=== PATIENT | female | born 1950 | race Caucasian/White ===

== ENCOUNTER 2018-01-07 11:48 | Inpatient (IN) ==
[~2018-01-07 11:48] MED LIST: LIDOCAINE W/ SODIUM BICARB 0.5 ML SYR ONE; LIDOCAINE W/ SODIUM BICARB 0.5 ML SYR SUBD ONE; Lactated Ringers 1,000 ML PRIMARY IV ONE; Lactated Ringers 1,000 ML PRIMARY IV SCH; Sodium Chloride 0.9% 0 ML IV ONE; Sodium Chloride 0.9% 1,000 ML ONE; Sodium Chloride 0.9% 500 ML ONE; ceFAZolin Inj 2gm (Premix) 2 GM/50 ML BAG IV ONE
[2018-01-07] MEDS ORDERED: HEPARIN 10,000 UNIT/1 ML ONE (11:52)
[2018-01-07] MEDS ORDERED: Vancomycin Inj 1gm vial ONE ×2 (11:55→13:06)
[2018-01-07 12:11] LABS: BILIRUBIN,URINE NEGATIVE (NEG); CLARITY,URINE CLEAR (CLEAR); COLOR,URINE YELLOW; GLUCOSE, URINE (UA) NEGATIVE (NEG); OCCULT BLOOD,URINE NEGATIVE (NEG); PH,URINE 5.5 (5.0-8.5); PROTEIN,URINE 30 mg/dl (NEG); UROBILINOGEN,URINE 0.2 mg/dL (0.2)
[2018-01-07 12:18] LABS: SQUAMOUS EPITHELIAL CELL,UR FEW; URINE SAMPLE TYPE CLEAN CATCH URINE
[2018-01-07] MEDS ORDERED: ROPIVACAINE SPLASH ONE ×5 (12:30)
[2018-01-07] MEDS ORDERED: [UNRECOGNIZED DRUG - OTHER] SPLASH ONE ×5 (12:30)
[2018-01-07] MEDS ORDERED: SODIUM CHLORIDE SPLASH ONE ×5 (12:30)
[2018-01-07] MEDS ORDERED: fentaNYL Inj 250 MCG/5 ML VIAL ONE ×2 (12:38→13:53)
[2018-01-07] MEDS ORDERED: BUPIVACAINE 0.5% W/ EPI - 10 ML VIAL ONE (12:39)
[2018-01-07] MEDS ORDERED: MIDAZOLAM 5 MG/1 ML ONE ×2 (12:39→13:24)
[2018-01-07] MEDS ORDERED: LIDOCAINE W/ SODIUM BICARB 0.5 ML SYR ONE (12:39)
[2018-01-07] MEDS ORDERED: Sodium Chloride 0.9% vial 10 ML ONE ×2 (13:05→13:20)
[2018-01-07 13:06] LABS: BUN/CREATININE RATIO 25.83 (6-20)
[2018-01-07] MEDS ORDERED: MORPHINE SULFATE/PF 10 MG/10 ML AMPULE ONE (13:08)
[2018-01-07] MEDS ORDERED: TRANEXAMIC ACID 1,000 MG / 10 ML VIAL ONE (13:17)
[2018-01-07] MEDS ORDERED: KETAMINE 100 MG/1 ML - 5 ML ONE (13:49)
[2018-01-07] MEDS ORDERED: Lactated Ringers 1,000 ML PRIMARY IV ONE (15:14)
--- NOTE | 2018-01-07 15:41 | ORTHO.OP ---
- - -: See Dictated Operative Report
[2018-01-07] MEDS ORDERED: Acetaminophen 1000mg Inj 1,000 MG/100 ML VIAL IV ONE (16:05)
--- NOTE | 2018-01-07 16:12 | CRNA.PROCE ---
Nerve Block Documentation - - Safety Measures: Time Out Taken, Site Verified - - Type of Nerve Block Used: Left Adductor Canal Nerve Block Position for Nerve Block: Supine Moniters Used During Block: EKG, SPO2, NIBP Oxygen Supplemented: Yes Sedation Used - Enter Amount in Comment Field [ANES.SEDAT]: Midazolam (mg): Yes (2.5), Fentanyl (mcg): Yes (50) Skin Prep Used: ChloroPrep Draped: No Technique: Ultrasound Nerve Block Needle Used: EchoBright 100 mm Local Anesthetic - Enter Amt in Comment Field [ANES.LOCNB]: 0.5 % Bupivicaine with Epinephrine 1:200,000 (mL): Yes (30cc) - - PreOp Block : Time In: 12:45 PreOp Block : Time Out: 13:05 Anesthesia Time - Other Weight: 81.193 kg Height: 5 ft 2 in Body Mass Index (BMI): 32.7
--- NOTE | 2018-01-07 16:13 | CRNA.PROCE ---
Central Neuraxis Block Placetx - - Safety Measures: Time Out Taken, Site Verified - - Type of Block: Subarachnoid Reason for Block: Surgical Moniters Used During Block: EKG, SPO2, NIBP Sedation Used - Enter Amount Used in Comment Field: Midazolam (mg): Yes (1mg), Fentanyl (mcg): Yes (50) Positioning: Sitting Skin Prep Used: ChloroPrep Draped: Yes Skin Infiltration - Enter Amount Used in Comment Field: 1% Xylocaine with Bicarb (mL): Yes (1cc) Spinal Needle Used: 25 Moose 80 mm Local Anesthetic - Enter Amount Used in Comment Field: 0.75 % Bupivacaine with Dextrose (ml): Yes Additive Used - Enter Amount Used in Comment Field: Preservative Free Morphine ( mg): Yes (0.1mg) Bioclusive Dressing Applied: No Anesthesia Time - Block Time PreOp Block : Time In: 12:45 PreOp Block : Time Out: 13:05 - Other Weight: 81.193 kg Height: 5 ft 2 in Body Mass Index (BMI): 32.7
[2018-01-07] MEDS ORDERED: fentaNYL Inj 100 MCG/2 ML VIAL ONE (16:14)
--- NOTE | 2018-01-07 16:17 | CRNA.PROGR ---
Anesthesia Time - - Start date: 01/07/18 - Procedure/Recovery Time Anesthesia : Time In: 13:25 Anesthesia : Time Out: 15:53 - Block Time PreOp Block : Time In: 12:45 PreOp Block : Time Out: 13:05 - Other Weight: 81.193 kg Height: 5 ft 2 in Body Mass Index (BMI): 32.7 Physical Status: P2 Anesthesia Type: Spinal Block, MAC, Other (Pt had Adductor Canal block and SAB placed in preop holding, followed by MAC in the OR for her surgery. Adductor [id number] SAB [id number] in OR with MAC [id number])
--- NOTE | 2018-01-07 16:30 | DI ---
XR KNEE 1 OR 2 VWS,01/07/2018 3:29 PM: Clinical History: Postoperative left total knee arthroplasty. Previous Exam: None at this facility. Findings: AP and lateral views of the left knee are obtained, and demonstrate postsurgical changes consistent w ith left total knee arthroplasty. There is subcutaneous air noted within the surrounding soft tissues. There is no hardware loosening or fracture. Impression: Status post left total knee arthroplasty without fracture.
[2018-01-07] MEDS ORDERED: CALCIUM CARBONATE 500 MG (TUMS) CHEWABLE TABLET PO PRN (16:38)
[2018-01-07] MEDS ORDERED: LIDOCAINE HCL 2 % 10 ML JELLY URO-JECT TOPICAL PRN (16:38)
[2018-01-07] MEDS ORDERED: KETOROLAC 15 MG/1 ML VIAL IVP SCH (16:38)
[2018-01-07] MEDS ORDERED: Ondansetron ODT Tab 8 MG TAB PO PRN (16:38)
[2018-01-07] MEDS ORDERED: ONDANSETRON 4 MG/2 ML VIAL IVP PRN (16:38)
[2018-01-07] MEDS ORDERED: BISACODYL 10 MG SUPPOSITORY RECTAL PRN (16:38)
[2018-01-07] MEDS ORDERED: BISACODYL 5 MG TABLET PO PRN (16:38)
[2018-01-07] MEDS ORDERED: diphenhydrAMINE 25 MG CAPSULE PO PRN (16:38)
[2018-01-07] MEDS ORDERED: Prochlorperazine Tab 10 MG TAB PO PRN (16:38)
[2018-01-07] MEDS ORDERED: MAG HYDROX/AL HYDROX/SIMETH 30 ML SUSP PO PRN (16:38)
[2018-01-07] MEDS: ACETAMINOPHEN 325 MG TABLET PO SCH ×2 (17:09→20:27)
[2018-01-07] MEDS: traMADol 50 MG TABLET PO SCH ×2 (17:40→22:48)
--- NOTE | 2018-01-07 19:39 | CONSULT ---
Consult Note - Consult Reason for Consult: PostOp Consulation : Ortho Requesting Physician: aidan Primary Care Provider: ARNALDO WOODRUFF HPI - History of Present Illness History of Present Illness: Patient is doing well postop hospitalist service consult for hypertension according to the primary care physician and patient has a whitecoat hypertension she is on Altace and Norvasc denies any chest pain nausea or vomiting Past Medical History Medical History: Hypertension, diabetes, hypercholesterolemia Tobacco Use: Never Smoker In the Past 12 Months, Have Used or Abuse Any of the Following Substance: None Review of Systems - Review of Systems All Systems: Reviewed & No Additional Complaints Except as Stated - Respiratory Respiratory: DENIES: Negative System Review, Cough, Sputum, Dyspnea At Rest, Dyspnea with Exertion, Pleuritic Pain, Hemoptysis, Wheezing, Other, See HPI - Cardiovascular Cardiovascular: DENIES: Negative System Review, Chest Pain, Edema, Syncope, Palpitations, Orthopnea, Paroxysmal Nocturnal Dyspnea, Other, See HPI - Gastrointestinal Gastrointestinal / Abdominal: DENIES: Negative System Review, Nausea, Vomiting, Diarrhea, Constipation, Abdominal Pain, Bloody Stool, Poor Appetite, Heartburn, Regurgitation, Bloating, Lactose Intolerance, Melena, Bright Red Blood per Rectum, Other, See HPI Medication / Allergies Home Medications: Home Medications 3 Medication Instructions Recorded Confirmed Type Acebutolol HCl 400 mg PO BID 12/12/17 01/07/18 History Amlodipine Besylate 7 mg PO QHS 12/12/17 01/07/18 History Aspirin [Aspir 81] 81 mg 12/12/17 History Betamet Diprop/Prop Gly 1 drp TOPICAL PRN 12/12/17 History [Betamethasone Dp Aug 0.05% [facility]] Indapamide 2.5 mg PO DAILY 12/12/17 01/07/18 History Insulin Detemir Flexpen Inj 10 unit SUBCUT QHS 12/12/17 01/07/18 History [Levemir Flexpen Inj] Linagliptin [Tradjenta] 5 mg 12/12/17 History Metformin HCl 1,000 mg PO QAM 12/12/17 12/12/17 History Metformin HCl 1,500 mg PO QPM 12/12/17 01/07/18 History Pravastatin Sodium [Pravachol] 80 mg PO DAILY 12/12/17 01/07/18 History Ramipril 10 mg PO BID 12/12/17 01/07/18 History Allergies/Adverse Reactions: Allergies 3 Allergy/AdvReac Type Severity Reaction Status Date / Time latex Allergy Unknown HIVES Verified 01/07/18 12:17 prochlorperazine Allergy NOT Verified 01/07/18 12:17 [From Compazine] APPLICABLE Exam - Vitals Vital Signs: Vital Signs Temperature 97.5 F Temperature Source Oral Pulse Rate [Pulse Oximeter] 63 Pulse Rate 56 Respiratory Rate 18 Blood Pressure [Left Arm] 158/77 Blood Pressure 173/84 Pulse Ox 98 Oxygen Flow Rate 1 Oxygen Delivery Method Nasal Cannula Height 5 ft 2 in Weight 179 lb - General General Appearance: No Acute Distress, Cooperative - Head Head Exam: Normal Inspection, Normocephalic, Atraumatic - Eye Eye Exam: POSITIVE: Normal Appearance, PERRL, EOMI, No Scleral Icterus - Respiratory Respiratory Exam: POSITIVE: Clear to Auscultation - Bilaterally, Breathing Non Labored, Normal To Percussion, Normal to Percussion and Palpation - Cardiovascular Cardiovascular Exam: POSITIVE: RRR, No Murmur, No Clicks, No Gallops, No Rubs, PMI Non-Displaced - GI/Abdominal GI/Abdominal Exam: POSITIVE: Normal Bowel Sounds, Non Tender, Non Distended, Soft, No Masses, No Hepatomegaly, No Splenomegaly, No Organomegaly - Extremities Extremities Exam: POSITIVE: No Clubbing Present, No Edema Present - Neurological Neurological Exam: POSITIVE: Alert, Oriented x 3, No Facial Droop, Speech Intact / Clear Results - Labs CBC and BMP: 01/07/18 12:30 Assessment and Plan - Patient Problems (1) Hypertension Current Visit: Yes Status: Acute Comment: Continue current medication blood pressure controlled at present time pain controlled Code(s): I10 - Essential (primary) hypertension (2) Diabetes Current Visit: Yes Status: Acute Comment: Stable continue current meds Code(s): E11.9 - Type 2 diabetes mellitus without complications
[2018-01-07] MEDS: Lactated Ringers 1,000 ML PRIMARY IV SCH (20:28)
[2018-01-07] MEDS: DOCUSATE 100 MG CAPSULE PO SCH (20:28)
[2018-01-07] MEDS: ceFAZolin Inj 2gm (Premix) 2 GM/50 ML BAG IV SCH (20:32)
[2018-01-08] MEDS: Insulin Lispro Flexpen 300 UNIT/3 ML INSULN.PEN SUBCUT SCH ×5 (00:09→20:20)
[2018-01-08] MEDS: ACETAMINOPHEN 325 MG TABLET PO SCH ×6 (00:10→20:19)
[2018-01-08] MEDS: traMADol 50 MG TABLET PO SCH ×4 (03:58→23:22)
[2018-01-08] MEDS: ceFAZolin Inj 2gm (Premix) 2 GM/50 ML BAG IV SCH (04:50)
[2018-01-08 05:22] LABS: Hematocrit [HCT] 28.6 % (37.0-47.0); Hemoglobin [HGB] 9.3 g/dL (12.0-16.0); MEAN CORPUSCULAR HEMOGLOBIN 30.2 PG (27-31); MEAN CORPUSCULAR HGB CONC 32.5 g/dL (33-37); MEAN CORPUSCULAR VOLUME 92.9 FL (81-99); MEAN PLATELET VOLUME 9.3 FL (7.4-12.2); RED BLOOD COUNT 3.08 10^6/uL (4.20-5.40)
[2018-01-08 05:46] LABS: BUN/CREATININE RATIO 22.5 (6-20)
[2018-01-08] MEDS: CELECOXIB 200 MG CAPSULE PO SCH (08:18)
[2018-01-08] MEDS: ASPIRIN EC 81 MG TABLET PO SCH ×2 (08:18→20:19)
[2018-01-08] MEDS: DOCUSATE 100 MG CAPSULE PO SCH ×2 (08:19→20:18)
--- NOTE | 2018-01-08 08:30 | ORTHO.PROG ---
Last Taken Vital Signs: Vital Signs - Last Taken Temperature 97.5 F 01/08/18 06:30 Pulse Rate 69 01/08/18 06:30 Respiratory Rate 18 01/08/18 06:30 Blood Pressure 148/69 01/08/18 06:30 Pulse Ox 94 01/08/18 06:30 Laboratory Results 01/07/18 01/07/18 01/07/18 Range/Units 12:06 12:30 12:30 WBC (4.8-10.8) 10^3/uL RBC (4.20-5.40) 10^6/uL Hgb (12.0-16.0) g/dL Hct (37.0-47.0) % MCV (81-99) FL MCH (27-31) PG MCHC (33-37) g/dL RDW Std Deviation (39-50) fL RDW Coeff of Yolanda (11.5-14.5) % Plt Count (140-350) 10*3/uL MPV (7.4-12.2) FL PT 10.8 (9.7-11.4) secs INR 1.02 (0.00-5.90) N/A APTT 35.6 (22.6-36.2) SECS Sodium (135-145) meq/L Potassium (3.8-5.2) meq/L Chloride (98-112) meq/L Carbon Dioxide (23-33) meq/L Anion Gap (5-20) BUN (7-22) mg/dL Creatinine (0.50-1.20) mg/dL Estimated GFR (>60 ml/min/1.73m(2)) BUN/Creatinine Ratio (6-20) Glucose (78-110) mg/dL Calculated Osmolality (267-292) mOsm/kg Calcium (8.7-10.7) mg/dL Ur Collection Type Clean catch urine Urine Color Yellow Urine Clarity Clear (CLEAR) Urine pH 5.5 (5.0-8.5) Ur Specific [place] 1.015 (1.005-1.030) Urine Protein 30 (NEG) mg/dl Urine Glucose (UA) Negative (NEG) mg/dL Urine Ketones Negative (NEG) Urine Occult Blood Negative (NEG) Urine Nitrate Negative (NEG) Urine Bilirubin Negative (NEG) Urine Urobilinogen 0.2 (0.2) mg/dL Ur Leukocyte Esterase Negative (NEG) Urine RBC None (NONE) /hpf Urine WBC None (NONE) Ur Squamous Epith Cells Few (NONE) Ur Renal Epithelial Cell None (NONE) Urine Crystals None Urine Bacteria None (NONE) Urine Casts None Urine Mucus Few (NONE) Urine Trichomonas None (NONE) Urine Yeast None (NONE) Blood Type A POSITIVE Antibody Screen Negative 01/07/18 01/08/18 01/08/18 Range/Units 12:30 04:25 04:25 WBC 7.01 (4.8-10.8) 10^3/uL RBC 3.08 L (4.20-5.40) 10^6/uL Hgb 9.3 L (12.0-16.0) g/dL Hct 28.6 L (37.0-47.0) % MCV 92.9 (81-99) FL MCH 30.2 (27-31) PG MCHC 32.5 L (33-37) g/dL RDW Std Deviation 43.8 (39-50) fL RDW Coeff of Yolanda 13.3 (11.5-14.5) % Plt Count 263 (140-350) 10*3/uL MPV 9.3 (7.4-12.2) FL PT (9.7-11.4) secs INR (0.00-5.90) N/A APTT (22.6-36.2) SECS Sodium 139 136 (135-145) meq/L Potassium 3.8 3.8 (3.8-5.2) meq/L Chloride 103 100 (98-112) meq/L Carbon Dioxide 24 27 (23-33) meq/L Anion Gap 12 9 (5-20) BUN 31 H 27 H (7-22) mg/dL Creatinine 1.2 1.2 (0.50-1.20) mg/dL Estimated GFR 45 45 (>60 ml/min/1.73m(2)) BUN/Creatinine Ratio 25.83 H 22.50 H (6-20) Glucose 106 146 H (78-110) mg/dL Calculated Osmolality 294.0 H 289.0 (267-292) mOsm/kg Calcium 9.3 9.1 (8.7-10.7) mg/dL Ur Collection Type Urine Color Urine Clarity (CLEAR) Urine pH (5.0-8.5) Ur Specific [place] (1.005-1.030) Urine Protein (NEG) mg/dl Urine Glucose (UA) (NEG) mg/dL Urine Ketones (NEG) Urine Occult Blood (NEG) Urine Nitrate (NEG) Urine Bilirubin (NEG) Urine Urobilinogen (0.2) mg/dL Ur Leukocyte Esterase (NEG) Urine RBC (NONE) /hpf Urine WBC (NONE) Ur Squamous Epith Cells (NONE) Ur Renal Epithelial Cell (NONE) Urine Crystals Urine Bacteria (NONE) Urine Casts Urine Mucus (NONE) Urine Trichomonas (NONE) Urine Yeast (NONE) Blood Type Antibody Screen S: minimal pain, up to bathroom no Lightheadedness O: AxOx3 AVSS NVI wgood AROM ankle dressing dry A:POD#1 s/p L TKA - doing well P:Up with PT Monitor HTN Mild acute blod loss anemia on chronic anemia- tolerating this fine anticipate discharge tomorrow, possibly today
--- NOTE | 2018-01-08 08:40 | PDOC(PROG) ---
Date and Time of Service: 01/08/2018 8:44 AM Interval History: Subjective Pain seemed to be controlled. She rates her pain maybe 2 out of 10. She is denying other symptoms there's no chest pain, no shortness of breath. No nausea. Objective : Data - Labs CBC and BMP: 01/08/18 04:25 01/08/18 04:25 Objective : Exam - General General Appearance: No Acute Distress, Cooperative - Head Head Exam: Normal Inspection - Eye Eye Exam: Normal Appearance - ENT ENT Exam: Normal Exam - Neck Neck Exam: Normal Inspection - Respiratory Respiratory Exam: Clear to Auscultation - Bilaterally - Cardiovascular Cardiovascular Exam: RRR - GI/Abdominal GI/Abdominal Exam: Normal Bowel Sounds, Non Tender, Non Distended, Soft, No Organomegaly - Rectal Rectal Exam: Deferred - External Exam: Deferred Exam: Deferred - Extremities Additional Extremities Exam Details: Dressing applied to the right knee. No edema on the left. - Back Back Exam: Normal Inspection - Neurological Neurological Exam: Alert, Oriented x 3, CN II-XII Intact, No Facial Droop, Speech Intact / Clear, Moves All Extremities Equally - Psychiatric Psychiatric Exam: Normal Affect Assessment and Plan - Patient Problems (1) Status post left knee replacement Current Visit: Yes Status: Acute Comment: For DVT prophylaxis she is on aspirin. Continue PT and OT. Pain seemed to be controlled with current pain medications. Code(s): Z96.652 - Presence of left artificial knee joint (2) Hypertension Current Visit: Yes Status: Acute Comment: I think will restart her on her blood pressure medications. 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 We'll restart indapamide though tomorrow. Code(s): I10 - Essential (primary) hypertension (3) Diabetes Current Visit: Yes Status: Acute Comment: Will put her back on hr metformin and Levemir. Continue sliding scale. Code(s): E11.9 - Type 2 diabetes mellitus without complications (4) Hypercholesterolemia Current Visit: Yes Status: Acute Comment: Continue pravastatin Code(s): E78.00 - Pure hypercholesterolemia, unspecified
[2018-01-08] MEDS: Lactated Ringers 1,000 ML PRIMARY IV SCH ×3 (09:05→23:52)
[2018-01-08] MEDS: RAMIPRIL 10 MG CAPSULE PO SCH ×2 (09:55→20:19)
[2018-01-08] MEDS: metFORMIN 500 MG TABLET PO SCH (10:22)
--- NOTE | 2018-01-08 11:28 | PTI REPORT ---
Thank you for the referral of Niru Mercado. She was seen on 01/08/18 for an inpatient evaluation status post left total knee arthroplasty. SUBJECTIVE: The patient is a 67-year-old female who was referred by Dr. Matute secondary to a left total knee arthroplasty. The patient rates her pain as a 2/10 on the verbal analog scale (0=no pain, 10=worst pain) this morning. The patient states she lives with her in [place]. She has two stairs to navigate to get in and out of her home. She does have a past history of back surgery which has left her with a toe drop on the right lower extremity. She does have an AFO but does not have it with her while in the hospital. She does take several blood pressure medications and has not taken them since her surgery. PAST MEDICAL HISTORY: Past medical history can be found in the patient's medical record. OBJECTIVE FINDINGS: General observations: The patient is alert and oriented x3. Bed mobility: The patient was able to come from supine to sit with stand by assistance. Transfers: The patient was able to transfer from sit to stand with stand by assistance. Range of motion: The patient demonstrated range of motion from 0 to 85 degrees in that left knee. Ambulation: The patient was able to ambulate approximately 100 feet with walker and stand by assist of one. ASSESSMENT: The patient is doing extremely well at this time and has a good prognosis. Problem List: Increased pain in the left knee Decreased active range of motion in the left knee Decreased strength in the left knee Short-Term Goals: To be met by discharge from inpatient: Patient will be able to transfer from bed to stand independently. Patient will be able to ambulate 100 feet with walker, weight-bearing as tolerated. Patient will be able to ascend and descend five stairs with walker, weight- bearing as tolerated. Long-Term Goals: To be met following discharge from inpatient: Patient will be seen by outpatient physical therapy. TREATMENT PLAN: Patient will be seen B.I.D during the week and one time per day over the weekend as an inpatient for transfers, mobility, stairs, and independence with her ADLs. INITIAL TREATMENT: Treatment today consisted of the initial evaluation followed by the patient performing ambulation before being transferred back to her chair. The patient was in good spirits with minimal pain. SIL
[2018-01-08] MEDS: ACEBUTOLOL HCL 400 MG PO SCH ×2 (12:47→20:17)
[2018-01-08] MEDS: oxyCODONE IR Tab 5 MG TAB PO PRN ×2 (13:16→18:57)
--- NOTE | 2018-01-08 13:31 | CRNA.PROGR ---
Anesthesia Note - Progress Notes Anesthesia Progress Note: Cheerful lying in bed. Just receiving her 1st Oxycontin post surgery, block is wearing off. No nausea since last night. Rubio out and has been to bathroom. Vital Signs - Last Taken Temperature 97.1 F 01/08/18 11:05 Pulse Rate 61 01/08/18 11:05 Respiratory Rate 17 01/08/18 11:05 Blood Pressure 165/81 01/08/18 11:05 Pulse Ox 96 01/08/18 11:05 No apparent anesthetic difficulties.
--- NOTE | 2018-01-08 15:47 | PT.PROG ---
Progress Note Progress Note: S. Patient stated that she is hurting more this afternoon compared to this morning. O. Patient ambulated 120 feet in the espinoza then returned to her room where she performed long arc quads, heel toe raises and sit to stands all x 10. Patient was left in bed with alarm and call light. A. Patient tolerated ambulation and exercise well, she would continue to benefit from skilled therapy to increase strength, and mobility. Patient will perform stair training tomorrow 01/09. P. Continue POC.
[2018-01-08] MEDS ORDERED: Insulin Detemir 300unit/3ml Flexpen SUBCUT SCH (21:00)
[2018-01-08] MEDS ORDERED: metFORMIN 500 MG TABLET PO SCH (21:00)
[2018-01-08] MEDS ORDERED: Pravastatin 80mg Tab PO SCH (21:00)
[2018-01-08] MEDS ORDERED: AmLODIPine Tab 5 MG TABLET PO SCH (21:00)
[2018-01-09] MEDS: ACETAMINOPHEN 325 MG TABLET PO SCH ×3 (00:02→08:47)
[2018-01-09] MEDS: traMADol 50 MG TABLET PO SCH ×2 (04:25→11:13)
[2018-01-09] MEDS: Insulin Lispro Flexpen 300 UNIT/3 ML INSULN.PEN SUBCUT SCH (07:11)
[2018-01-09] MEDS: oxyCODONE IR Tab 5 MG TAB PO PRN (07:20)
[2018-01-09 07:55] VITALS: RESP 20; TEMP 97.1; O2SAT 94
--- NOTE | 2018-01-09 08:12 | PDOC(PROG) ---
Date and Time of Service: 01/09/2018 8:16 AM Interval History: Subjective She said she has some ache in her left knee but otherwise she is denying other symptoms. Objective : Data - Labs CBC and BMP: 01/08/18 04:25 01/08/18 04:25 Objective : Exam - General General Appearance: No Acute Distress, Cooperative - Head Head Exam: Normal Inspection - Eye Eye Exam: Normal Appearance - ENT ENT Exam: Normal Exam - Neck Neck Exam: Normal Inspection - Respiratory Respiratory Exam: Clear to Auscultation - Bilaterally - Cardiovascular Cardiovascular Exam: RRR - GI/Abdominal GI/Abdominal Exam: Normal Bowel Sounds, Non Tender, Non Distended, Soft, No Organomegaly - Rectal Rectal Exam: Deferred - External Exam: Deferred Exam: Deferred - Extremities Additional Extremities Exam Details: Dressing applied to the left knee. Looks dry. - Neurological Neurological Exam: Alert, Oriented x 3, CN II-XII Intact - Psychiatric Psychiatric Exam: Normal Affect Assessment and Plan - Patient Problems (1) Status post left knee replacement Current Visit: Yes Status: Acute Comment: Continue PT and OT. For DVT prophylaxis she is on aspirin. We'll see recommendation of PT today and whether she is ready to go home. Code(s): Z96.652 - Presence of left artificial knee joint (2) Hypertension Current Visit: Yes Status: Acute Comment: Blood pressure is high today but she didn't get her medications yet. Will See her blood pressure after the medication. Code(s): I10 - Essential (primary) hypertension (3) Diabetes Current Visit: Yes Status: Acute Comment: Continue same medications Code(s): E11.9 - Type 2 diabetes mellitus without complications (4) Hypercholesterolemia Current Visit: Yes Status: Acute Comment: Same med Code(s): E78.00 - Pure hypercholesterolemia, unspecified (5) Postoperative anemia Current Visit: Yes Status: Acute Comment: She has some mild anemia probably secondary to postoperative blood loss. Will recheck it again today. Code(s): D64.9 - Anemia, unspecified
[2018-01-09] MEDS: DOCUSATE 100 MG CAPSULE PO SCH (08:18)
[2018-01-09] MEDS: CELECOXIB 200 MG CAPSULE PO SCH (08:18)
[2018-01-09] MEDS: metFORMIN 500 MG TABLET PO SCH (08:18)
[2018-01-09] MEDS: ACEBUTOLOL HCL 400 MG PO SCH (08:18)
[2018-01-09] MEDS: ASPIRIN EC 81 MG TABLET PO SCH (08:19)
[2018-01-09] MEDS: RAMIPRIL 10 MG CAPSULE PO SCH (08:19)
[2018-01-09 08:45] LABS: BASOPHILS # (AUTO) 0.01 10*3/UL; BASOPHILS % (AUTO) 0.1 % (0-1); EOSINOPHILS # (AUTO) 0.06 10*3/UL; EOSINOPHILS % (AUTO) 0.7 % (0-8); Hematocrit [HCT] 28.3 % (37.0-47.0); Hemoglobin [HGB] 9.4 g/dL (12.0-16.0); LYMPHOCYTES # (AUTO) 0.82 10*3/uL; MEAN CORPUSCULAR HEMOGLOBIN 30.7 PG (27-31); MEAN CORPUSCULAR HGB CONC 33.2 g/dL (33-37); MEAN CORPUSCULAR VOLUME 92.5 FL (81-99); MONOCYTES % (AUTO) 6.2 % (5-15); NEUTROPHILS # (AUTO) 6.62 10*3/UL; NEUTROPHILS % (AUTO) 82.4 % (50-80); RED BLOOD COUNT 3.06 10^6/uL (4.20-5.40)
[2018-01-09] MEDS ORDERED: Non-Formulary Drug (Linagliptin [Tradjenta] 5 MG) PO SCH (09:00)
[2018-01-09] MEDS ORDERED: INDAPAMIDE 2.5 MG TABLET PO SCH (09:00)
[2018-01-09 09:21] LABS: PLATELET MORPHOLOGY COMMENT NORMAL MORPHOLOGY (NORM); RBC MORPHOLOGY COMMENT NORMAL MORPHOLOGY (NORM); WBC MORPHOLOGY COMMENT NORMAL MORPHOLOGY (NORM)
[2018-01-09 10:31] VITALS: BP 172/76
--- NOTE | 2018-01-09 10:41 | DCSUMMARY ---
Hospitalization Summary Admit Date: 01/07/2018 Discharge Date: 01/09/18 Hospital Course: Discharge diagnoses 1. Status post left knee replacement 2. History of hypertension 3. History of diabetes 4. History of hypercholesterolemia 5. Anemia secondary to postoperative blood loss Hospital course This is a 67 years old female with medical history significant for history of diabetes, hypertension, hypercholesterolemia and osteoarthritis of the left knee who came into the hospital to have surgery and had left total knee replacement done by Dr. Matute. Her postoperative course was notable for presence of mild anemia she did not require transfusion. She was asymptomatic from it. She did start physical therapy and she did well. She was cleared from the point of physical therapy to go home today. Per my discussion with Dr. Matute also he felt that she can go home. Patient will be discharge home and follow-up with him as scheduled and with her primary. We did note her blood pressure was elevated this need to be watched later on as an outpatient and follow-up with her primary. I did notice that's her primary just recently increased dosage of her medication and this need to be followed up. For DVT prophylaxis she was put on aspirin per recommendation of Dr. Matute. Laboratory Results 01/09/18 Range/Units 08:25 WBC 8.04 (4.8-10.8) 10^3/uL RBC 3.06 L (4.20-5.40) 10^6/uL Hgb 9.4 L (12.0-16.0) g/dL Hct 28.3 L (37.0-47.0) % MCV 92.5 (81-99) FL MCH 30.7 (27-31) PG MCHC 33.2 (33-37) g/dL RDW Std Deviation 42.8 (39-50) fL RDW Coeff of Yolanda 13.3 (11.5-14.5) % Plt Count 256 (140-350) 10*3/uL MPV 9.0 (7.4-12.2) FL Immature Gran % (Auto) 0.4 (0-5) % Neut % (Auto) 82.4 H (50-80) % Lymph % (Auto) 10.2 (10-50) % Lipscomb % (Auto) 6.2 (5-15) % Eos % (Auto) 0.7 (0-8) % Baso % (Auto) 0.1 (0-1) % Immature Gran # (Auto) 0.03 10*3/UL Neut # (Auto) 6.62 10*3/UL Lymph # (Auto) 0.82 10*3/uL Lipscomb # (Auto) 0.50 (0.3-0.8) 10*3/UL Eos # (Auto) 0.06 10*3/UL Baso # (Auto) 0.01 10*3/UL WBC Morphology Comment Normal morphology (NORM) Plt Morphology Comment Normal morphology (NORM) RBC Morph Comment Normal morphology (NORM) Discharge instruction Diet regular Activity as tolerated and per Dr. Matute recommendation Medications Current Medication(s) 3 Medication Instructions Recorded Confirmed Type Acebutolol HCl 400 mg PO BID 12/12/17 01/07/18 History Amlodipine Besylate 7 mg PO QHS 12/12/17 01/07/18 History Betamet Diprop/Prop Gly 1 drp TOPICAL BID PRN 12/12/17 01/09/18 History [Betamethasone Dp Aug 0.05% [facility]] Indapamide 2.5 mg PO DAILY 12/12/17 01/07/18 History Insulin Detemir Flexpen Inj 10 unit SUBCUT QHS 12/12/17 01/07/18 History [Levemir Flexpen Inj] Linagliptin [Tradjenta] 5 mg PO DAILY 12/12/17 01/09/18 History Metformin HCl 1,000 mg PO QAM 12/12/17 12/12/17 History Metformin HCl 1,500 mg PO QPM 12/12/17 01/07/18 History Pravastatin Sodium [Pravachol] 80 mg PO DAILY 12/12/17 01/07/18 History Ramipril 10 mg PO BID 12/12/17 01/07/18 History Aspirin EC 81 mg PO BID #60 tab 01/09/18 Rx Bisacodyl EC Tab [Dulcolax Tab] 5 mg PO BID PRN tab 01/09/18 Rx Insulin Detemir Flexpen Inj 10 unit SUBCUT BEDTIME insuln.pen 01/09/18 Rx [Levemir Flexpen Inj] oxyCODONE IR Tab [OxyIR Tab] 5 mg PO Q6H PRN tab 01/09/18 Rx traMADol HCl [Ultram] 25 mg PO Q6H tab 01/09/18 Rx Follow-up with Dr. Matute as scheduled and with her PCP in 1-2 weeks Condition at discharge was stable for discharge Exam - Vitals Vital Signs: Vital Signs Temperature 97.1 F Temperature Source Temporal Artery Scan Pulse Rate [Pulse Oximeter] 74 Pulse Rate 56 Respiratory Rate 20 Blood Pressure [Right Arm] 172/76 Blood Pressure [Left Arm] 187/83 Blood Pressure 173/84 Pulse Ox 94 Oxygen Flow Rate 1 Oxygen Delivery Method Room Air Height 5 ft 2 in Weight 187 lb 4.8 oz Patient Problems - Patient Problem List (1) Status post left knee replacement Status: Acute Code(s): Z96.652 - Presence of left artificial knee joint Category: Medical (2) Hypertension Status: Acute Code(s): I10 - Essential (primary) hypertension Category: Medical (3) Diabetes Status: Acute Code(s): E11.9 - Type 2 diabetes mellitus without complications Category: Medical (4) Hypercholesterolemia Status: Acute Code(s): E78.00 - Pure hypercholesterolemia, unspecified Category: Medical (5) Postoperative anemia Status: Acute Code(s): D64.9 - Anemia, unspecified Category: Medical
--- NOTE | 2018-01-09 11:05 | PT.PROG ---
Progress Note Progress Note: S. Patient stated that she is feeling good this morning, she reports she feels that she is ready to go home. O. Patient ambulated 175 feet to the therapy gym where she had heat to her hip and performed exercises in the form of; heel slides, quad sets, glute sets, ankle pumps, short arc quads, seated knee flexion, heel toe raises, sit to stands all x 10, box step ups with #2 box and #3 box x 5 each. Patient then ascended and descended 3 stairs and ambulated 175 feet back to her room where she was left in her chair with alarm and call light. A. Patient tolerated therapy well this morning, she was able to perform stair training with no pain or problems. Patient would benefit from Outpatient therapy at this time. Patient has met all goals. P. Continue POC until Discharged home.
--- NOTE | 2018-01-09 16:24 | OTI REPORT ---
Thank you for the referral of Niru Mercado. She was seen on 01/09/18 for an inpatient evaluation status post left total knee arthroplasty. SUBJECTIVE: The patient is a 67-year-old female who lives in between [facility]. She reports she does live with her . She has two stairs to get into her home. She has a walk in shower with a handicapped toilet. She did recently have a total knee replacement on the left leg. She does report her pain is a 2/ 10 on the verbal analog scale (0=no pain, 10=worst pain). She feels her knee is doing well. The patient does report that she had a back surgery approximately 10 months ago and she has healed from that. The patient reports she already has a sock aide and a pencil maker at home from that surgery. PAST MEDICAL HISTORY: Past medical history can be found in the patient's medical record. OBJECTIVE FINDINGS: Activities of daily living: The patient was able to complete full body dressing today with contact guard assist only for safety when standing. The patient was able to reach her feet with her hands to don socks and pants. Range of motion/Strength: The patient has good shoulder range of motion with strength of 4+/5 bilaterally. Transfers: The patient was able to complete a functional transfer down to the therapy gym with stand by assist only and good, safe use of her walker. ASSESSMENT: At this time the patient does report she has all the equipment that she needs at home. The patient has met all of her OT goals and she will be discharged from OT services. TREATMENT PLAN: Patient will be discharged from occupational therapy services at this time. INITIAL TREATMENT: Treatment today consisted of the initial evaluation. The patient was able to complete a functional transfer down to the therapy gym with stand by assist only and good, safe use of her walker. The patient was transferred to PT services. SIL
[2018-01-09] MEDS ORDERED: AmLODIPine Tab 5 MG TABLET PO SCH (21:00)
== END 2018-01-09 11:11 | disposition home or self-care (01) | DRG 565 ==
LOC: OR 11:48 → EDSTATUS 12:00 → MED/SURG 16:20
PROVIDERS: ADMIT Orthopaedic Surgery; ATTEND Orthopaedic Surgery